=== PATIENT | female | born 1940 | race Caucasian/White ===

== ENCOUNTER 2017-07-24 05:37 | Inpatient (IN) | payer OTHER, BC ==
[2017-07-24] MEDS ORDERED: ceFAZolin 2 GM/SWFI 2 GM/20 ML SYR IVP ONE (05:58)
[2017-07-24] MEDS ORDERED: LIDOCAINE 1% 2 ML INJ ID PRN (05:58)
[2017-07-24] MEDS ORDERED: ACETAMINOPHEN 500 MG TAB PO ONE (05:58)
[2017-07-24] MEDS ORDERED: LR 1,000 ML IV ONE (05:58)
[2017-07-24] MEDS ORDERED: GABAPENTIN 300 MG CAP PO ONE (05:58)
--- NOTE | 2017-07-24 06:35 | PDHPUP ---
History & Physical Update H&P update statement: This history and physical update is based on an assessment of the patient which was completed after admission or registration (within 24 hours), but prior to the surgery/procedure. H&P update: H&P reviewed & patient examined, no change in patient's condition since H&P completed
[2017-07-24] MEDS ORDERED: BUPIVACAINE 0.25% 30 ML SDV ONE (06:52)
[2017-07-24] MEDS ORDERED: BACITRACIN 50,000 UNITS/10 ML SYR IRR ONE (06:53)
[2017-07-24] MEDS ORDERED: THROMBIN (BOVINE) 5,000 UNIT VIAL TP ONE (06:53)
[2017-07-24] MEDS ORDERED: MIDAZOLAM 2 MG/2 ML VIAL IVP ONE (07:04)
--- NOTE | 2017-07-24 07:04 | PDANEPAE ---
ANE History of Present Illness 76 year old female for TLIF. ANE Past Medical History - Cardiovascular History Hx Hypertension: No Hx Arrhythmias: No Hx Chest Pain: No Hx Coronary Artery / Peripheral Vascular Disease: No Hx CHF / Valvular Disease: No Hx Palpitations: No - Pulmonary History Hx COPD: No Hx Asthma/Reactive Airway Disease: No Hx Recent Upper Respiratory Infection: No Hx Oxygen in Use at Home: No Hx Sleep Apnea: No Sleep Apnea Screening Result - Last Documented: Negative - Neurologic History Hx Cerebrovascular Accident: No Hx Seizures: No Hx Dementia: No Neurologic History Comment: hx of previous lumbar fusion. Current symptoms of burning / tingling of right leg all the way down. Reports level of intensity of 4/10. - Endocrine History Hx Diabetes: No Hypothyroid: No Hyperthyroid: No Obesity: no - Renal History Hx Renal Disorders: Yes Renal History Comment: hx of bladder infection summer 2016 - Liver History Hx Hepatic Disorders: No - Neurological & Psychiatric Hx Hx Neurological and Psychiatric Disorders: No - Cancer History Hx Cancer: No - Congenital Disorder History Hx Congenital Disorders: No - GI History Hx Gastrointestinal Disorders: Yes Gastrointestinal History Comment: hx of perforated ulcer - Other Health History Other Health History: none - Chronic Pain History Chronic Pain: Yes (lower back) - Surgical History Prior Surgeries: 02/2017 bilateral cataracts. original lumbar back surgery 2004. knee replacement- left 2013 ANE Review of Systems Review of systems is: negative Review of Systems: - Exercise capacity Exercise capacity: >=4 METS METS (RN): 4 METS ANE Patient History - Allergies Allergies/Adverse Reactions: Penicillins Allergy (Verified 07/02/17 14:03) Rash 60 yrs ago - Home Medications Home medications: home medication list seen and reviewed Home Medications: Acetamn/Diphenhydramine 500/25 [Tylenol PM (*)] 2 each PO HS 06/26/17 [Last Taken Unknown] Alendronate Sodium [Fosamax 70 MG (*)] 70 mg PO FR@0700 06/26/17 [Last Taken ] Ascorbic Acid [Vitamin C 500 mg (*)] 1,000 mg PO DAILY 06/26/17 [Last Taken Unknown] Atorvastatin Calcium [Lipitor 40 mg (*)] 40 mg PO HS 06/26/17 [Last Taken 21:00] Calcium Carbonate/Vitamin D3 [Calcium 600 with Vit D Chew Tb] 1 each PO DAILY [Last Taken Unknown] Cholecalciferol Vit D3 [Vitamin D3 2000 units tab (OTC)] 2,000 units PO DAILY [Last Taken Unknown] Losartan Potassium [Cozaar 25 mg (*)] 25 mg PO DAILY 06/26/17 [Last Taken Unknown] RX: Herbals/Supplements -Info Only 1 ea PO DAILY 06/26/17 [Last Taken 07/24/17 05:00] traZODone [traZODONE 50MG (*)] 50 mg PO HS PRN 06/26/17 [Last Taken 07/10/17] - NPO status NPO Status: no food or drink >8 hours NPO Since - Liquids (Date): 07/23/17 NPO Since - Liquids (Time): 21:00 NPO Since - Solids (Date): 07/23/17 NPO Since - Solids (Time): 19:30 - Anes Hx Anes Hx: no prior problems - Smoking Hx Smoking Status: Former smoker - Alcohol Use Alcohol Use: None - Family Anes Hx Family Anes Hx: neg - N/A Family Hx Anesthesia Complications: none ANE Labs/Vital Signs - Vital Signs Vital Signs: reviewed preoperatively; see RN documention for details Blood Pressure: 158/85 Heart Rate: 80 Respiratory Rate: 16 O2 Sat (%): 95 Height: 161.29 cm Weight: 55.792 kg ANE Physical Exam - Airway Neck exam: FROM Mallampati Score: Class 1 - Pulmonary Pulmonary: no respiratory distress - Cardiovascular Cardiovascular: regular rate and rhythym - ASA Status ASA Status: II ANE Anesthesia Plan Anesthesia Plan: general endotracheal anesthesia Total IV Anesthesia: No
[2017-07-24] MEDS ORDERED: PROPOFOL 200 MG/20 ML VIAL ONE (07:10)
[2017-07-24] MEDS ORDERED: REMIFENTANIL HCL 1 MG VIAL ONE ×2 (07:11→10:47)
[2017-07-24] MEDS ORDERED: MIDAZOLAM 2 MG/2 ML VIAL ONE (07:11)
[2017-07-24] MEDS ORDERED: PROPOFOL/EMULSION 500 MG/50 ML BOTTLE IV ONE ×2 (07:11→10:47)
[2017-07-24] MEDS ORDERED: MAGNESIUM HYDROXIDE 30 ML UDCUP PO PRN (07:53)
[2017-07-24] MEDS ORDERED: BISACODYL 10 MG SUPP PR PRN (07:53)
[2017-07-24] MEDS ORDERED: diphenhydrAMINE 25 MG CAP PO PRN (07:53)
[2017-07-24] MEDS ORDERED: LACTULOSE 20 GM/30 ML UDCUP PO PRN (07:53)
[2017-07-24] MEDS ORDERED: NALOXONE HCL 0.4 MG/ML INJ IVP PRN ×2 (07:53→11:12)
[2017-07-24] MEDS ORDERED: ONDANSETRON DISINTEGRATING 4 MG TAB PO PRN (07:53)
[2017-07-24] MEDS ORDERED: morphINE PCA 30 MG/30 ML PCA IV PRN (07:53)
[2017-07-24] MEDS ORDERED: POLYETHYLENE GLYCOL 3350 17 GM PKT PO PRN (07:53)
[2017-07-24] MEDS ORDERED: THROMBIN (BOVINE) 20,000 UNIT VIAL TP ONE (08:17)
[2017-07-24] MEDS ORDERED: PHENYLEPHRINE HCL 100 MCG/ML SYR ONE (08:20)
[2017-07-24] MEDS ORDERED: ROCURONIUM 50 MG/5 ML VIAL ONE (08:20)
[2017-07-24] MEDS ORDERED: LIDOCAINE 2% 5 ML SDV ONE (08:20)
[2017-07-24] MEDS ORDERED: ONDANSETRON 4 MG/2 ML VIAL ONE (08:48)
[2017-07-24] MEDS ORDERED: DEXAMETHASONE 4 MG/ML VIAL ONE ×2 (08:48)
[2017-07-24] MEDS ORDERED: PHENYLEPHRINE 10 MG/ML SDV ONE (08:51)
[2017-07-24] MEDS ORDERED: OXYCODONE/APAP 5/325 TAB PO PRN (11:12)
[2017-07-24] MEDS ORDERED: HYDROCODONE/APAP 5/325 TAB PO PRN (11:12)
[2017-07-24] MEDS ORDERED: METOCLOPRAMIDE 10 MG/2 ML VIAL IVP PRN (11:12)
[2017-07-24] MEDS ORDERED: ALBUTEROL 3 ML DEYVIAL IH PRN (11:12)
[2017-07-24] MEDS ORDERED: PROMETHAZINE HCL 25 MG/ML INJ IVP PRN (11:12)
[2017-07-24] MEDS ORDERED: LABETALOL HCL 5 MG/ML 20 ML MDV IVP PRN (11:12)
[2017-07-24] MEDS ORDERED: ONDANSETRON 4 MG/2 ML VIAL IVP PRN (11:12)
[2017-07-24] MEDS ORDERED: DEXAMETHASONE 4 MG/ML VIAL IVP PRN (11:12)
[2017-07-24] MEDS ORDERED: LR 500 ML IV PRN (11:12)
[2017-07-24] MEDS ORDERED: MEPERIDINE 25 MG/ML SYR IVP PRN (11:12)
[2017-07-24] MEDS ORDERED: fentaNYL 100 MCG/2 ML INJ ONE ×3 (11:50→13:53)
[2017-07-24] MEDS: PHENYLEPHRINE HCL 100 MCG/ML SYR IVP PRN ×3 (12:31→12:40)
--- NOTE | 2017-07-24 12:32 | POSTOPPROG ---
Post Op Note Date of Operation: 07/24/17 Surgeon: Zen Connolly Security Trainer: Andra Guillory NP Anesthesiologist: Dawson Anesthesia: GET(General Endotracheal) Pre-op Diagnosis: Lumbar stenosis Procedure: L3-4 TLIF with removal and revision hardware L4-S1 Inf/Abcess present in the surg proc area at time of surgery?: No Depth: Deep Incisional (Fascial) EBL: 100-500 Total fluids administered: see anesthesia Complications: none Drains: Haja Ramires Date of Surgery: 07/24/17 Post Op Day: 0 Assessment/Plan: 76 yr old s/p L3-4 TLIF with removal and revision of hardware L4-S1 for right leg pain Plan: -PT/OT -Pain management, CAGE CASHIER ordered if needed -Wear brace when out of bed -Post op xrays in am -HEMALATHA in place -Please call neurosurgery with any questions/concerns Subjective: Waking up in PACU Objective: Waking up in PACU Moves all extremities to command Sensation intact to light touch BLE Dressing CDI HEMALATHA patent Appropriate Neuro Check Frequency Ordered: Yes
[2017-07-24] MEDS ORDERED: ADENOSINE 6 MG/2 ML VIAL ONE ×2 (12:35→12:37)
[2017-07-24] MEDS: fentaNYL 100 MCG/2 ML INJ IVP PRN ×4 (12:43→14:52)
[2017-07-24] MEDS ORDERED: AMIODARONE HCL 100 ML IV ONE ×2 (12:57→12:58)
[2017-07-24] MEDS ORDERED: AMIODARONE HCL 150 MG/3 ML VIAL ONE (12:57)
--- NOTE | 2017-07-24 13:03 | PDCARCONS ---
Cardiology Consult Reason for Consult: post op afib Chief Complaint: pain in the pelvis Requesting Physician: Mohsen History of Present Illness: 76 yo female s/p laminectomy developed afib post operatively. She has no cardiac history.\ She denies palpitations, chest pain, SOB, PND, orthopnea. History Information - Allergies/Home Medication List Allergies/Adverse Reactions: Penicillins Allergy (Verified 07/02/17 14:03) Rash 60 yrs ago Home Medications: Acetamn/Diphenhydramine 500/25 [Tylenol PM (*)] 2 each PO HS 06/26/17 [Last Taken Unknown] Alendronate Sodium [Fosamax 70 MG (*)] 70 mg PO FR@0700 06/26/17 [Last Taken ] Ascorbic Acid [Vitamin C 500 mg (*)] 1,000 mg PO DAILY 06/26/17 [Last Taken Unknown] Atorvastatin Calcium [Lipitor 40 mg (*)] 40 mg PO HS 06/26/17 [Last Taken 21:00] Calcium Carbonate/Vitamin D3 [Calcium 600 with Vit D Chew Tb] 1 each PO DAILY [Last Taken Unknown] Cholecalciferol Vit D3 [Vitamin D3 2000 units tab (OTC)] 2,000 units PO DAILY [Last Taken Unknown] Herbals/Supplements -Info Only 1 ea PO DAILY 06/26/17 [Last Taken 07/24/17 05:00 ] Losartan Potassium [Cozaar 25 mg (*)] 25 mg PO DAILY 06/26/17 [Last Taken Unknown] traZODone [traZODONE 50MG (*)] 50 mg PO HS PRN 06/26/17 [Last Taken 07/10/17] Past Medical History: - Social History Smoking Status: Former smoker Alcohol Use: None Age in Years: 75 or older Sex: Female Congestive Heart Failure History: No Hypertension History: No Stroke/TIA/Thromboembolism History: No Vascular Disease History: No Diabetes Mellitus: No [id number] Score: 5 Physical Exam Physical Exam: Temp Pulse Resp BP Pulse Ox 36.9 C 80 16 158/85 H 95 07/24/17 06:44 07/24/17 07:04 07/24/17 07:04 07/24/17 07:04 07/24/17 07:04 Constitutional: uncomfortable Eyes: anicteric sclera Ears, Nose, Mouth, Throat: moist mucous membranes Cardiovascular: irregularly irregular, tachycardia, No systolic murmur, No JVD Peripheral Pulses: 1+: carotid (R), carotid (L), femoral (R), femoral (L) Respiratory: no respiratory distress, no rales or rhonchi Gastrointestinal: normoactive bowel sounds, soft, non-tender abdomen Skin: warm Neurologic: sensation intact bilaterally, No weakness, No facial droop Psychiatric: other (post anesthesia with reduced cognitive function.) Lymph, Heme, Immunologic: no cervical LAD, no supraclavicular LAD Lab and Imaging EKG additional interpertation: afib with rvr, ST depression laterally. A/P Assessment: Post op atrial fibrillation. Assymptomatic -Rate and rhythm control with amiodarone. -cardioversion for persistant hypotentsion. -metabolic evaluation. -Echo for regional wall motion and LV function. Past Medical History PMH: - Medical/Surgical History Hx Diabetes: No - Family History Significant Family History: No pertinent family hx - Social History Smoking Status: Former smoker Additional Social History: Review of Systems Review of Systems: - Review of Systems Constitutional: denies: chills, fever Respiratory: no symptoms reported Cardiac: no symptoms reported Gastrointestinal/Abdominal: no symptoms reported Genitourinary: no symptoms Musculoskelatal: other (pelvic pain) Skin: no symptoms Neurological: other (under anesthesia) Hematologic/Lymphatic: no symptoms reported
--- NOTE | 2017-07-24 13:09 | GOP ---
[f rep st] OPERATIVE REPORT DATE OF OPERATION: 07/24/2017 SURGEON: Earl Connolly MD DENTAL COORDINATOR: Andra Guillory NP PREOPERATIVE DIAGNOSIS: 1. 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 2. Spinal stenosis. 3. Degenerative scoliotic tilt above a prior fusion at L3-4. 4. Right lumbosacral radiculopathy. 5. Prior lumbar fusion of L4, L5, and S1. 6. Lumbar degenerative disk disease at L3-4. POSTOPERATIVE DIAGNOSIS: 1. 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 2. Spinal stenosis. 3. Degenerative scoliotic tilt above a prior fusion at L3-4. 4. Right lumbosacral radiculopathy. 5. Prior lumbar fusion of L4, L5, and S1. 6. Lumbar degenerative disk disease at L3-4. PROCEDURE PERFORMED: 1. Removal of posterior segmental instrumentation of L4, L5, and S1. 2. Posterolateral intervertebral arthrodesis of L3-4 (14453). 3. Placement of posterior segmental instrumentation of L3, L4, and L5. 4. Same incision bone graft harvest. 5. Placement of biomechanical intervertebral device at L3-4. 6. Spinal stereotaxy with microscope. FINDINGS: ESTIMATED BLOOD LOSS: 250 cc INDICATIONS: Magaly is an elderly female with a prior history, several years ago, of an L4-5 and L5- S1 fusion that was successful and done by the physicians at [place]. She had achieved solid bony union with no apparent complication from surgery, but she developed severe radiating pain on the right-hand side and right-sided low back pain. Plain films demonstrated degenerative scoliotic tilt at the L3- 4 level directly above and there was some associated foraminal stenosis with severe facet arthropathy . This is a manifestation of adjacent segment degeneration and I suggested adjacent segment fusion. The risk of pseudoarthrosis, further adjacent segment degeneration, and expansion of her spinal fusi on to the L2-3 and even higher levels of the thoracolumbar spine were discussed. She knew there was risk of nonunion and possible revision surgery from this as well as the risk of CSF leak, nerve injur y, and the possibility that the surgery would fail to eliminate her pain. She accepted all of these risks and she wanted to proceed. DESCRIPTION OF PROCEDURE: The patient was taken to the operating room and placed in the supine posit ion. General anesthesia was begun. She was flipped prone on the Haja table and care was taken to pad all points of contact. Her back was sterilely prepped and draped in the usual fashion. A local izing x-ray was taken. She had a 5.5 cm incision above the L4-5 and L5-S1 interspaces. We extended this incision rostrally for about 5 cm, so a total incision length was about 10 cm. The subcutaneous tissue was dissected using the plasma blade down through the fascia and a subperiosteal dissection w as made down the inferior lamina of L2. The total lamina of L3 was exposed. The prior posterolatera l hardware at L4-5 and L5-S1 was exposed. We removed the set screws for the cherrie system initially and then on the left-hand side we removed the cherrie from the connectors, removed the connectors, and then removed each of the posts for the L4-5 and L5-S1 hardware. We did, likewise, on the right-hand side. The instrumentation was very easy to remove and were in excellent position. There was solid lead ramp agent olateral fusion easily visible. There was no abnormal motion. No loosening of hardware and no evide nce of hardware complication. Our entire dissection throughout the surgery was done with a plasma bl mars. No Bovie cautery was ever used. We attached the Stealth reference frame to the L3 spinous proc ess, performed an O-arm spin, and using we placed pedicle screws bilaterally at L3, L4, an d L5. We used 7.5 mm screws at L5. We originally chose a 6.5 on the left and, [facility] and somewhat soft bone on the left at L5, we increased this to a 7.5 mm screw on the [facility] t. We chose a 7.5 mm screw primarily, so a single 6.5 mm screw was wasted. We placed the screws lambetro aterally at L4 and I was happy with the bony purchase of these screws. We then placed screws bilater ally and DeNovo at L3. We used a 5.5 mm screw on the right and a 6.5 on the left. We performed an O -arm spin and the screws were all in excellent position. There was no breach of the medial or inferi or pedicle border. We stimulated all of the screws and the lowest stem was the right L4 screw, which stemmed at 20 milliamperes. We took a 50 mm cherrie and increased the bend on the cherrie, then placed it d own over the tulips. We distracted on the right at L3-4, but kept it static on the left. This reduc ed the degenerative scoliotic curve. We then removed all of the soft tissue of the bone at L3-4, asiya vested the inferior L3 spinous process, and the entire L4 residual spinous process for autologous gra fting purposes. We drilled bilateral laminas at L3-4 and harvested this bone for autologous grafting purposes. Under the scope, we opened ligamentum flavum and decompressed the thecal sac in the later al recesses bilaterally. A nice decompression was obtained and we performed a complete facetectomy o n the right for access to the foramen itself and harvested all of this bone for autologous grafting p urposes. Under the scope we removed the L3-4 disk. We denuded the subchondral bone to create arthro desis and chose a 7 x 28 mm expandable cage. We placed bone autograft BMP into the disk space. We u sed a grand total of 2.0 mg of BMP for the entire surgery, 1.0 mg was placed in the interspace and I place 0.5 mg on the left as well as 0.25 on the right. We did waste 0.25 mg of BMP. We placed bony autograft posterolaterally bilaterally to create a posterolateral arthrodesis. After decorticating a ll of the posterolateral bone, we then placed a subfascial drain and then closed the incision in mult iple layers using Vicryl sutures. Steri-Strips were applied to the skin and the patient was reversed from anesthesia, extubated, and transferred to the recovery room in stable condition. There were no complications. COMPLICATIONS: None. INSTRUMENTATION REMOVED: [facility] 3D. INSTRUMENTATION PLACED: [employer] Solara 5.5 mm system with an expandable peek intervertebral device at the L3-4 level. This was a 7 x 28 mm device and we used a 5.5 mm Solara system by [employer]. /[id number]/MODL
[2017-07-24] MEDS ORDERED: HYDROmorphONE/DILAUDID 1 MG/ML INJ ONE (13:47)
[2017-07-24] MEDS ORDERED: AMIODARONE A.FIB-18HR INFSN (ORDER 3/3) IV ONE (14:30)
[2017-07-24] MEDS ORDERED: AMIODARONE A.FIB-6HR INFSN (ORDER 2/3) PREMIX IV ONE (14:30)
--- NOTE | 2017-07-24 14:38 | SOAPPROG ---
SOAP Progress Note Assessment/Plan: Assessment: 1. Paroxysmal atrial fibrillation perioperative. 2. Hypertension 3. Hyperlipidemia Impression: Patient has converted to sinus rhythm with 300 mg of amiodarone. Echocardiogram is currently pending as is metabolic profile. She can go to the neuro surgical unit for continued postoperative care. No further cardiac evaluation at this time. 07/24/17 14:37 Subjective: Feeling well, no chest pain, palpitations, no shortness of breath, PND, orthopnea. Objective: Vital Signs Temp Pulse Resp BP Pulse Ox 35.9 C L 61 14 102/83 H 98 07/24/17 13:30 07/24/17 12:05 07/24/17 13:45 07/24/17 13:45 07/24/17 13:45 Telemetry reveals sinus rhythm Physical Exam - Physical Exam General Appearance: alert, no apparent distress Neck: supple Respiratory: lungs clear Cardiac/Chest: regular rate, rhythm ICD10 Worksheet Patient Problems: Problems Problem Status Onset Atrial fibrillation Acute
[2017-07-24 14:40] LABS: PLATELET COUNT 301 10^3/uL (150-400)
[2017-07-24 14:46] LABS: CREATINE KINASE 138 IU/L (0-156)
[2017-07-24] MEDS: NS 1,000 ML IV SCH (15:55)
[2017-07-24] MEDS: FAMOTIDINE 20 MG TAB PO SCH ×2 (16:13→21:29)
[2017-07-24] MEDS: LOSARTAN POTASSIUM 25 MG TAB PO SCH (16:13)
[2017-07-24] MEDS: SENNOSIDES/DOCUSATE SODIUM TAB PO SCH ×2 (16:13→21:29)
--- NOTE | 2017-07-24 16:16 | ECHO ---
[email or web address] [address] Main: [phone] Fax: Transthoracic Echocardiogram Name: KATHERINE WALL MR#: [id number] Study Date: 07/24/2017 Study Time: 02:38 PM Date of : 1940 Age: 76 year(s) Height: 160 cm (63 in.) Weight: 55.79 kg (123 lb.) BSA: 1.57 m2 Gender: Female Examination: Echo Indication: New atrial fibrillation/post op back Image Quality: Contrast: Requested by: Mohsen Wyman BP: 128 mmHg/73 mmHg Heart Rate: Rhythm: Indication: New atrial fibrillation/post op back Procedure Staff Clicker Operator: Eli Nettles Physician: Mohsen Wyman Requesting Provider: Conclusions: Normal study Measurements: Chambers Valvular Assessment AV/MV Valvular Assessment TV/PV Normal Normal Normal Name Value Range Name Value Range Name Value Range Ao Roz (MM): 2.9 cm (2.2 cm-3.7 AV Vmax: 1.09 m/s (1 m/s-1.7 cm) m/s) IVSd (2D): 1.1 cm (0.6 cm-1.1 AV maxP mmHg ( - ) cm) MV E Vmax: 0.53 m/s ( - ) LVDd (2D): 3.9 cm (3.9 cm-5.3 MV A Vmax: 0.65 m/s ( - ) cm) MV E/A: 0.82 ( - ) LVDs (2D): 2.3 cm (2.1 cm-4 cm) LVPWd (2D): 0.9 cm ( - ) LVEF (2D): 74 (>=54 %) EF Range: 65-70 % Continued Measurements: Chambers Valvular Assessment AV/MV Name Value Name Value LADs: 2.8 cm MV E' Septal: 0.06 m/s LADs Lon.9 cm MV E/E' Septal: 8.20 LA Area: 12.7 cm2 MV E/E' Lateral: 9.90 Findings: Left Ventricle: Normal size left ventricle. Normal global systolic LV function. The ejection fraction is estimated to be Patient: KATHERINE WALL Study Date: 07/24/2017 Page 1 of 2 02:38 PM 65-70 %. No regional wall motion abnormality. Right Ventricle: Normal size right ventricle. Left Atrium: The left atrium is normal in size. Right Atrium: The right atrium is normal in size. Mitral Valve: Mild mitral annular calcification. Trivial to mild mitral regurgitation. Aortic Valve: The aortic valve is normal in appearance and function. Tricuspid Valve: The tricuspid valve is normal in appearance and function. Trivial tricuspid valve regurgitation. Pulmonic Valve: The pulmonic valve is normal in appearance and function. Aorta: The aorta is normal. Pericardium: No pericardial effusion. (No Signature Object) Patient: KATHERINE WALL Study Date: 07/24/2017 Page 2 of 2 02:38 PM D:_[id number]
[2017-07-24] MEDS: ACETAMINOPHEN 500 MG TAB PO SCH ×2 (16:29→21:29)
[2017-07-24] MEDS: GABAPENTIN 300 MG CAP PO SCH ×2 (16:31→21:29)
[2017-07-24] MEDS: ceFAZolin 2 GM/DEXTROSE 100 ML IV SCH (16:31)
--- NOTE | 2017-07-24 16:31 | POSTANESTH ---
Post Anesthetic Evaluation Cardiovascular Status: Normal, Stable (had PAF post op. After excellent help from Dr. Wyman she is back in NSR. labs okay) Respiratory Status: Normal, Stable Level of Consciousness/Mental Status: Can Participate in Eval Pain Control: Adequate, Prn Tx Ordered Nausea/Vomiting Control: Adequate, Prn Tx Ordered Complications Possibly Related to Anesthesia: None Noted
[2017-07-24] MEDS: oxyCODONE IR 5 MG TAB PO PRN ×2 (16:47→22:41)
[2017-07-24] MEDS: ONDANSETRON 4 MG/2 ML VIAL IVP PRN (17:17)
[2017-07-24] MEDS: METHOCARBAMOL 750 MG TAB PO PRN (18:33)
[2017-07-24] MEDS: ATORVASTATIN CALCIUM 40 MG TAB PO SCH (21:29)
[2017-07-25] MEDS: ceFAZolin 2 GM/DEXTROSE 100 ML IV SCH (00:01)
[2017-07-25] MEDS: oxyCODONE IR 5 MG TAB PO PRN ×3 (04:01→21:17)
[2017-07-25] MEDS: METHOCARBAMOL 750 MG TAB PO PRN ×2 (04:01→21:17)
[2017-07-25 05:40] LABS: PLATELET COUNT 245 10^3/uL (150-400)
[2017-07-25] MEDS: NS 1,000 ML IV SCH (06:17)
[2017-07-25] MEDS: ACETAMINOPHEN 500 MG TAB PO SCH ×3 (06:17→21:18)
[2017-07-25] MEDS: GABAPENTIN 300 MG CAP PO SCH ×3 (06:17→21:18)
--- NOTE | 2017-07-25 08:16 | NEUSURGPN ---
Date of Surgery: 07/24/17 Post Op Day: 1 Assessment/Plan: 76 yr old s/p L3-4 TLIF with removal and revision of hardware L4-S1 for right leg pain POD#1 Plan: -PT/OT -Pain management, patient tolerating PO medications at this time -Wear brace when out of bed -Post op xrays pending for today -DC HEMALATHA -Change dressing, leave steri strips -Case management to eval for possible dc with home health tomorrow -Please call neurosurgery with any questions/concerns Subjective: Right leg pain improved Objective: AxO x3 PERRL 5/5 BLE Sensation intact to light touch BLE HEMALATHA present Dressing falling off, dry-steri strips in place Neuro Check Frequency: per routine Urinary Catheter in Place: No Catheter Insertion Date: 07/24/17 - Physician Discussed Patient with .: Mohsen Patient Seen by : Mohsen Neurosurgery Physical Exam - Vitals, I&O, Labs I and O 07/24/17 07/25/17 07/26/17 05:59 05:59 05:59 Intake Total 4500 100 Output Total 1805 350 Balance 2695 -250 Weight 55.792 kg Intake: Oral (ml) 590 100 IV Intake (ml) 2900 IV Infused (ml) 1010 Ns 1,000 ml @ 75 mls/hr 900 IV CONT FRANKLIN Rx#: [id number] ceFAZolin 2 GM/DEXTROSE 110 100 ml @ 200 mls/hr IV Q8H FRANKLIN Rx#:[id number] Output: Urine (ml) 1500 350 Catheter 1500 350 Estimated Blood Loss (ml) 250 HEMALATHA Drain Output (ml) 55 Back Haja Ramires 55 Other: Number of Voids Catheter 1 1 Vital Signs Temp Pulse Resp BP Pulse Ox 36.9 C 78 14 105/59 L 92 07/25/17 07:23 07/25/17 07:23 07/25/17 07:23 07/25/17 07:23 07/25/17 07:23 Laboratory Results 07/25/17 05:02 07/25/17 05:02 ICD10 Worksheet Patient Problems: Problems Problem Status Onset Atrial fibrillation Acute
[2017-07-25] MEDS: SENNOSIDES/DOCUSATE SODIUM TAB PO SCH ×2 (08:47→21:17)
[2017-07-25] MEDS: FAMOTIDINE 20 MG TAB PO SCH ×2 (08:48→21:18)
[2017-07-25] MEDS: LOSARTAN POTASSIUM 25 MG TAB PO SCH (09:00)
[2017-07-25] MEDS: ONDANSETRON 4 MG/2 ML VIAL IVP PRN (15:38)
--- NOTE | 2017-07-25 16:07 | ASMTCMCOM ---
CM Note CM Note Notes: PT rec [facility], pt agreeable and chooses [facility]. Address/phone verified. Luisa alerted and verified [place] address. CM to follow. Date Signed: 07/25/2017 04:07 PM Electronically Signed By:ARVIND Sheriff
[2017-07-25] MEDS: ATORVASTATIN CALCIUM 40 MG TAB PO SCH (21:18)
[2017-07-26] MEDS: GABAPENTIN 300 MG CAP PO SCH ×3 (06:29→22:26)
[2017-07-26] MEDS: ACETAMINOPHEN 500 MG TAB PO SCH ×3 (06:29→22:24)
--- NOTE | 2017-07-26 07:43 | NEUSURGPN ---
Date of Surgery: 07/24/17 Post Op Day: 2 Assessment/Plan: Assessment: 76 yr old s/p L3-4 TLIF with removal and revision of hardware L4- S1 for right leg pain POD#2 Plan: -PT/OT-cpm -Pain management, patient tolerating PO medications at this time but has some continued back pain and neck pain as well -Wear brace when out of bed -Post op xrays look good -HEMALATHA removed already -Changed dressing, leave steri strips -Case management to eval for possible dc with home health tomorrow -Please call neurosurgery with any questions/concerns Subjective: Awake and alert. NAD. Pt with expected lower back pain. No POLLOCK/neck/chest/abd or gu complaints. No f/c/n/v/d. Objective: AAxO x3, PERRLA 5/5 BLE Sensation intact to light touch BLE CDI dressing dry-steri strips in place Neuro Check Frequency: per routine Urinary Catheter in Place: No Catheter Insertion Date: 07/24/17 - Physician Discussed Patient with .: Mohsen Patient Seen by : Mohsen Neurosurgery Physical Exam - Vitals, I&O, Labs I and O 07/25/17 07/26/17 07/27/17 05:59 05:59 05:59 Intake Total 4500 800 Output Total 1805 350 Balance 2695 450 Weight 55.792 kg 55.792 kg Intake: Oral (ml) 590 800 IV Intake (ml) 2900 IV Infused (ml) 1010 Ns 1,000 ml @ 75 mls/hr 900 IV CONT FR[place]LIN Rx#: [id number] ceFAZolin 2 GM/DEXTROSE 110 100 ml @ 200 mls/hr IV Q8H [place] Rx#:[id number] Output: Urine (ml) 1500 350 Catheter 1500 350 Estimated Blood Loss (ml) 250 HEMALATHA Drain Output (ml) 55 Back Haja Ramires 55 Other: Number of Voids Catheter 1 1 Toilet 2 Post Void Residual Scan Volume (ml) Toilet 140 Vital Signs Temp Pulse Resp BP Pulse Ox 37.1 C 86 16 110/67 96 07/26/17 00:00 07/26/17 00:00 07/26/17 00:00 07/26/17 00:00 07/26/17 00:00 Laboratory Results 07/25/17 05:02 12/27/17 05:02 ICD10 Worksheet Patient Problems: Problems Problem Status Onset Atrial fibrillation Acute
[2017-07-26] MEDS ORDERED: LIDOCAINE 2% VISCOUS 15 ML UDCUP PO ONE (08:15)
[2017-07-26] MEDS: SENNOSIDES/DOCUSATE SODIUM TAB PO SCH ×2 (10:24→22:25)
[2017-07-26] MEDS: FAMOTIDINE 20 MG TAB PO SCH ×2 (10:24→22:27)
[2017-07-26] MEDS: LOSARTAN POTASSIUM 25 MG TAB PO SCH (13:27)
--- NOTE | 2017-07-26 13:52 | PDHOSCONS ---
Hospitalist Consult Hospitalist Consult: Referring service: Neurosurgery Reason for consultation: Syncope with LOC, Anemia, Hyponatremia HPI: this is a 76 yo female with hx of chronic lumbar back pain who had lumbar surgery 3 days ago. Her post op period was complicated by afib, first epidsode. Cardiology was consulted. She was given Amiodarone x 1 and converted back to SR. No cardioversion was necessary. She does not have a hx of afib. No AC was provided. She has a hx of HTN for which she takes Losartan and HLD for which she is on an Aspirin. She denies any hx of CV disease including no CAD, CHF, or other. She does reports a hx of syncope after a left knee replacement surgery and another syncopal episodes while doing dishes during an episode of diarrhea illness and dehydration. She denies any CP, SOB, palpitations, or leg swelling. today after being on the toilet she fell and hit her head. LOC was reported. NS evaluated the pt and she had a unremarkable exam and negative CT Brain. She has not been on AC as Lovenox has not been given. She is still feeling dizzy and weak. Afebrile. Her Hgb is noted to have dropped substantially when compared to her Hgb prior to surgery. Her Hgb was 12.4 and is 8.3 currently. She is not tachycardic or hypotensive. ROS: 10 point ROS + per above otherwise negative PMHX: HLD, HTN PSHx: back surgery x 2, left knee replacement, right shoulder repair SocHx: non tobacco. No ETOH, lives with FmHx: NC O: VSS, BP 120's, on RA, no tachycardia GEN: nad HEENT: NC, AT, PEERLA, EOMI, MMM NECK: NO JVD CV: RRR, NO LE EDEMA LUNGS: CTA B ABD: S/NT/ND EXT: NO EDEMA NEURO: AAOX3 PSYCH: MOOD APPROPRIATE Labs: reviewed Hgb per above Na: 131, K 4.3 CT Brain: no e/o acute bleed TTE: preserved LVEF I/P 76 yo female with syncopal episode #syncope, vasovagal vs volume deficit #anemia, likely postoperative anemia #Hx of HTN, normatensive currently #post operative afib, no e/o of ongoing afib #Generalized weakness and deconditioning #Hyponatremia Plan: -Transfuse 1 unit PRBC -Hold Lovenox today. -obtain urine studies: Na and Osmolality -cont telemetry -Check EKG -Hold Losartan -Keep overnight, if clinically responds well, may be ready for discharge tomorrow. Thank you for this consultation, we will continue to follow.
--- NOTE | 2017-07-26 14:46 | CPEKG ---
Heart Rate: 88 RR Interval: 682 P-R Interval: 132 QRSD Interval: 86 QT Interval: 360 QTC Interval: 436 P [place]: 77 QRS [place]: 79 T Wave [place]: 39 EKG Severity - NORMAL ECG - EKG Impression: SINUS RHYTHM Electronically Signed By: Abebe Ellis 26-Jul-2017 16:25:30
[2017-07-26] MEDS: METHOCARBAMOL 750 MG TAB PO PRN (15:12)
[2017-07-26] MEDS: oxyCODONE IR 5 MG TAB PO PRN ×2 (15:12→23:29)
[2017-07-26] MEDS: ATORVASTATIN CALCIUM 40 MG TAB PO SCH (22:23)
[2017-07-27 05:09] LABS: PLATELET COUNT 252 10^3/uL (150-400)
[2017-07-27] MEDS: oxyCODONE IR 5 MG TAB PO PRN ×2 (05:42→13:49)
[2017-07-27] MEDS: GABAPENTIN 300 MG CAP PO SCH ×2 (05:43→13:49)
[2017-07-27] MEDS: ACETAMINOPHEN 500 MG TAB PO SCH ×2 (05:43→13:49)
[2017-07-27] MEDS: AMIODARONE HCL 200 MG TAB PO SCH ×2 (06:09→09:00)
[2017-07-27] MEDS ORDERED: ALENDRONATE SODIUM 70 MG TAB PO SCH (07:00)
--- NOTE | 2017-07-27 07:51 | SOAPPROG ---
SOAP Progress Note Assessment/Plan: Assessment: 76 yr old s/p L3-4 TLIF with removal and revision of hardware L4- S1 for right leg pain POD#3. Na is 132 today. Plan: -PT/OT-cpm -Pain management, patient tolerating PO medications at this time -Wear brace when out of bed -Post op xrays look good -no HEMALATHA -RN To change dressing today before DC. leave steri strips in place -Case management to eval for possible dc with home health today as long as medicine team agrees and clears her -Please call neurosurgery with any questions/concerns -ok to shower today before DC Subjective: Awake and alert. NAD. back pain well controlled with 1 oxycodone. No POLLOCK/neck/ chest/abd or gu complaints. No f/c/n Objective: AAxO x3, PERRLA 5/5 BLE Sensation intact to light touch BLE CDI dressing dry-steri strips in place Scalp lac looks good with heath in place Subjective: awake, alert. States her pain is well controlled and wants to go home today. denies new numbness ,tingling or weakness. Denies feeling light headed or dizzy Objective: Vital Signs Temp Pulse Resp BP Pulse Ox 36.7 C 84 16 134/80 H 93 07/26/17 23:03 07/26/17 23:03 07/26/17 23:03 07/26/17 23:03 07/26/17 23:03 Laboratory Results 07/27/17 05:00 07/27/17 05:00 07/26/17 07/27/17 07/28/17 05:59 05:59 05:59 Intake Total 800 700 Output Total 350 1000 Balance 450 -300 ICD10 Worksheet Patient Problems: Problems Problem Status Onset Atrial fibrillation Acute
[2017-07-27 08:06] VITALS: RESP 18
[2017-07-27] MEDS: FAMOTIDINE 20 MG TAB PO SCH (09:00)
[2017-07-27] MEDS ORDERED: ENOXAPARIN 40 MG/0.4 ML SYR SC SCH (09:00)
--- NOTE | 2017-07-27 12:43 | HOSPPROG ---
Hospitalist Progress Note Assessment/Plan: 76 yo female with syncopal episode went back into afib overnight, now is SR on Amiodorone Overall feels better, s/p transfusion, no further weakness Na is still low, Ashley with adequate response Cardiology has evaluated this patient, per nursing they recommend holter monitor. No changes in current meds. No Aspirin or need for longterm AC Would cont to hold Losartan until f/u F/u with PCP one week, with Cards 1-2 weeks for Holter monitor Recheck BMP at PCP to ensure Na is better ok for d/c from med perspective #syncope, vasovagal vs volume deficit #anemia, likely postoperative anemia, s/p one unit transfusion. #Hx of HTN, normatensive currently, holding Losartan #post operative afib, no e/o of ongoing afib #Generalized weakness and deconditioning #Hyponatremia, slight improvement, clinically looks Euvolemic Subjective: Feels better. No further Afib. NO CP or SOB Objective: Vital Signs Temp Pulse Resp BP Pulse Ox 36.3 C 76 18 132/70 H 94 07/27/17 08:00 07/27/17 08:00 07/27/17 08:00 07/27/17 08:00 07/27/17 08:00 Laboratory Results 07/27/17 05:00 07/27/17 05:00 07/26/17 07/27/17 07/28/17 05:59 05:59 05:59 Intake Total 800 700 Output Total 350 1000 Balance 450 -300 - Physical Exam Constitutional: no apparent distress Eyes: PERRL Ears, Nose, Mouth, Throat: moist mucous membranes, hearing normal Cardiovascular: regular rate and rhythym, no murmur, rub, or gallop, No edema Respiratory: no respiratory distress, no rales or rhonchi, clear to auscultation Gastrointestinal: normoactive bowel sounds, soft, non-tender abdomen Skin: warm Musculoskeletal: full muscle strength Neurologic: AAOx3 Psychiatric: interacting appropriately, not anxious, not encephalopathic, thought process linear ICD10 Worksheet Patient Problems: Problems Problem Status Onset Atrial fibrillation Acute
[2017-07-27 12:49] VITALS: BP 143/72; PULSE 82; TEMP 97.5; O2SAT 98
[2017-07-27] MEDS: SENNOSIDES/DOCUSATE SODIUM TAB PO SCH (13:03)
--- NOTE | 2017-07-27 13:04 | PDIAF ---
- Diagnosis Diagnosis: Lumbar DJD/stenosis Code Status: Full Code - Medication Management Discharge Medications: Medications to Continue on Transfer Alendronate Sodium [Fosamax 70 MG (*)] 70 mg PO FR@0700 06/26/17 [Last Taken ] Ascorbic Acid [Vitamin C 500 mg (*)] 1,000 mg PO DAILY 06/26/17 [Last Taken Unknown] Atorvastatin Calcium [Lipitor 40 mg (*)] 40 mg PO HS 06/26/17 [Last Taken 21:00] Calcium Carbonate/Vitamin D3 [Calcium 600 with Vit D Chew Tb] 1 each PO DAILY [Last Taken Unknown] Cholecalciferol Vit D3 [Vitamin D3 2000 units tab (OTC)] 2,000 units PO DAILY [Last Taken Unknown] Herbals/Supplements -Info Only 1 ea PO DAILY 06/26/17 [Last Taken 07/24/17 05:00 ] Losartan Potassium [Cozaar 25 mg (*)] 25 mg PO DAILY 06/26/17 [Last Taken Unknown] Acetaminophen [Tylenol ES 500 mg (*)] 1,000 mg PO Q8HRS tab 07/27/17 [Last Taken Unknown] Amiodarone HCl [Pacerone (*)] 200 mg PO DAILY tab 07/27/17 [Last Taken Unknown] Gabapentin [Neurontin 300 MG (*)] 900 mg PO Q8HRS #90 cap 07/27/17 [Last Taken Unknown] Methocarbamol [Robaxin 750 mg (*)] 750 mg PO QID PRN #60 tab 07/27/17 [Last Taken Unknown] Polyethylene Glycol 3350 [Miralax 17 gm (*)] 17 gm PO DAILY PRN pkt 07/27/17 [ Last Taken Unknown] Sennosides/Docusate Sodium [Senokot-S] 1 - 2 tab PO BID tab 07/27/17 [Last Taken Unknown] oxyCODONE IR [Oxycodone Ir (*)] 5 - 10 mg PO Q4HRS PRN #60 tab 07/27/17 [Last Taken Unknown] Discharge Medications: Refer to the Discharge Home Medication list for PRN reason. - Orders Services needed: Registered Nurse, Physical Therapy, Occupational Therapy Diet Recommendation: no restrictions on diet Diet Texture: Regular Texture Diet Young: Not applicable Jamie Stockings Discontinue Date: continue for 5 days after discharge Wound Care Instructions: check incision daily. call [phone] with any concerns Equipment: wear LSO when out of bed Additional: no bending, twisting or lifting over 10 lbs x 6 weeks. - Follow Up Care Current Providers and Referrals: Doctor Not,On Staff, [Primary Care Provider] -
--- NOTE | 2017-07-27 15:32 | ASMTCMCOM ---
CM Note CM Note Notes: Pt medically stable for d/c with [facility] OT/PT/RN. [facility] [place]. Date Signed: 07/27/2017 03:32 PM Electronically Signed By:ARVIND Sheriff
--- NOTE | 2017-07-27 15:34 | ASDISCHSUM ---
Discharge Information Plan Status:Home with Home Health Medically Cleared to Leave: Discharge Date:07/27/2017 02:18 PM CM D/C Disposition:Home Health Service ADT D/C Disposition:[id number] Projected Discharge Date:07/27/2017 11:00 AM Transportation at D/C: Discharge Delay Reason: Follow-Up Date:07/27/2017 11:00 AM Discharge Slot: Final Diagnosis: Placement Information Referral Type:*Home Health Care Services Referral ID:[id number] Provider Name:[facility] Address 1:[address] [place] [address] Address 2: City:[place] Selection Factors: State:[place] Patient Contact Information Contact Name:JORDY Relationship: Address:[address] City:[place] Alternate Phone: State/Zip Code:[place] [address] Email: Financial Information Financial Class: Primary Plan Desc:MEDICARE INPATIENT Primary Plan Number:[id number] Secondary Plan Desc: OUT OF STATE [facility] Secondary Plan Number:[id number] Assessment Information [facility] CM Progress Note CM Note CM Note Notes: PT rec HHC, pt agreeable and chooses [facility]. Address/phone verified. Luisa alerted and verified [place] address. CM to follow. Date Signed: 07/25/2017 04:07 PM Electronically Signed By:ARVIND Sheriff [facility] CM Progress Note CM Note CM Note Notes: Pt medically stable for d/c with [facility] OT/PT/RN. Orders to be obtained in [facility]. Date Signed: 07/27/2017 03:32 PM Electronically Signed By:ARVIND Sheriff Intervention Information Intervention Type:*IM-Signed Date of Service:07/27/2017 02:00 PM Patient Type:Inpatient Staff Member:Samreen Carl Hours: Discipline: Severity: Comment:
== END 2017-07-27 14:18 | disposition home health service (06) | DRG 454 ==
LOC: F3N 05:37
PROVIDERS: ADMIT Neurological Surgery; ATTEND Neurological Surgery
DX: M47.27 Other spondylosis with radiculopathy, lumbosacral region (principal); E87.1 Hypo-osmolality and hyponatremia; M51.36 Other intervertebral disc degeneration, lumbar region; R55 Syncope and collapse; D64.9 Anemia, unspecified; I48.91 Unspecified atrial fibrillation; S01.01XA Laceration without foreign body of scalp, initial encounter; W18.12XA Fall from or off toilet with subsequent striking against object, initial encounter; Y93.E8 Activity, other personal hygiene; E78.5 Hyperlipidemia, unspecified; I10 Essential (primary) hypertension; M48.00 Spinal stenosis, site unspecified; Z98.1 Arthrodesis status; Z87.891 Personal history of nicotine dependence
CPT/HCPCS: 97116-GP; 97162-GP; 97166-GO; 97530-GP; 97535-GO; C1713; G8978-GP-CI; G8979-GP-CH; G8979-GP-CI; G8980-GP-CI; G8987-GO-CJ; G8988-GO-CI; J0153; J0171; J0282; J0690; J1100; J1170; J2250; J2370; J2405; J2704; J3010; P9016

== ENCOUNTER → 2017-08-15 | Outpatient (CLI) | payer OTHER, BC | LOC: BHFA 13:00 | PROVIDERS: ATTEND Internal Medicine Interventional Cardiology | DX: I48.91 Unspecified atrial fibrillation (principal) ==

== ENCOUNTER → 2018-05-30 | Outpatient (CLI) | payer OTHER, BC | LOC: BHFA 11:30 | PROVIDERS: ATTEND Internal Medicine Cardiovascular Disease | DX: R55 Syncope and collapse (principal); I48.91 Unspecified atrial fibrillation ==

== ENCOUNTER → 2018-07-01 | Outpatient (CLI) | payer OTHER, BC | LOC: BHCLAF 16:15 | PROVIDERS: ATTEND Internal Medicine Cardiovascular Disease | DX: R55 Syncope and collapse (principal) | CPT/HCPCS: 93306-PO ==